=== PATIENT | male | born 1980 | race Caucasian/White ===

== ENCOUNTER 2018-04-02 21:27 | Emergency (ER) | payer SELFPAY ==
[~2018-04-02] VITALS: Ht 302.3 cm; Wt 72.3 kg
[2018-04-02 21:33] VITALS: Ht 302.3 cm; Wt 72.3 kg
[2018-04-03] MEDS ORDERED: KETOROLAC 30 MG INJ IM STA (00:03)
[2018-04-03] MEDS ORDERED: morphine 4 MG/ML VIAL IM STA (02:07)
[2018-04-03] MEDS ORDERED: IBUP-1542 PO (03:37)
[2018-04-03] MEDS ORDERED: HYDR-4011 PO (03:37)
[2018-04-03] MEDS ORDERED: METH750T93 PO (03:37)
[2018-04-03 03:48] VITALS: BP 153/78; PULSE 90; RESP 18
--- NOTE | 2018-04-03 07:07 | ERD ---
ER Documentation Chief Complaint Chief Complaint LEFT KNEE PAIN; [facility] [place] @ 1300 HPI 38-year-old male past medical history of right leg amputation presents for left knee pain status post fall today. Patient says he has chronic testicular swelling however he states that the swelling has increased since he had the f all. The states that he slipped on a wet floor and fell onto his knee, he was using a walker. Knee pain is noted to be 10 out of 10. He also complains of low back pain after the fall. No other complaints. ROS All systems reviewed and are negative except as per history of present illness. Medications Home Meds Active Scripts Hydrocodone/Acetaminophen ([place] 5-325 Tablet) 1 Each Tablet, 1 TAB PO Q6H PRN for PAIN, #10 TAB Prov:NATA WEBB 04/03/18 Methocarbamol* (Robaxin*) 750 Mg Tablet, 750 MG PO TID for back spasm, #30 TAB Prov:NATA WEBB DO 04/03/18 Ibuprofen* (Motrin*) 600 Mg Tab, 600 MG PO Q6H PRN for PAIN AND OR ELEVATED TEMP, #30 TAB Prov:WEBBNATA 04/03/18 Allergies Allergies: Coded Allergies: No Known Allergy (Unverified , 04/02/18) PMhx/Soc Hx Miscellaneous Medical Probl: Yes (DM2) Hx Alcohol Use: No Hx Substance Use: No Hx Tobacco Use: No Smoking Status: Never smoker Physical Exam Vitals Vital Signs Date Temp Pulse Resp B/P (MAP) Pulse Ox O2 O2 Flow FiO2 Time Delivery Rate 04/03/18 98.5 90 18 153/78 99 Room Air 03:48 (103) 04/02/18 98.9 98 19 167/80 96 21:33 (109) Physical Exam Const: No acute distress Resp: Clear to auscultation bilaterally Cardio: Regular rate and rhythm, no murmurs Abd: Soft, non tender, non distended. Normal bowel sounds Skin: No petechiae or rashes Back: Lumbar paraspinal muscle tenderness to palpation, no midline tenderness. Ext: There is no left knee tenderness to palpation. The left lower extremity has swelling diffusely. Neur: Awake and alert Psych: Normal Mood and Affect Genital exam: swelling of glans penis and scrotum Results 24 hrs Laboratory Tests Test 04/02/18 21:39 04/03/18 00:30 Bedside Glucose 270 mg/dL White Blood Count 9.2 10^3/ul Red Blood Count 2.79 10^6/ul Hemoglobin 8.2 g/dl Hematocrit 25.5 % Mean Corpuscular Volume 91.4 fl Mean Corpuscular Hemoglobin 29.4 pg Mean Corpuscular Hemoglobin Concent 32.2 g/dl Red Cell Distribution Width 14.1 % Platelet Count 432 10^3/UL Mean Platelet Volume 8.7 fl Immature Granulocytes % 0.200 % Neutrophils % 71.2 % Lymphocytes % 19.2 % Monocytes % 7.2 % Eosinophils % 1.8 % Basophils % 0.4 % Nucleated Red Blood Cells % 0.0 /100WBC Immature Granulocytes # 0.020 10^3/ul Neutrophils # 6.5 10^3/ul Lymphocytes # 1.8 10^3/ul Monocytes # 0.7 10^3/ul Eosinophils # 0.2 10^3/ul Basophils # 0.0 10^3/ul Nucleated Red Blood Cells # 0.0 10^3/ul Sodium Level 138 mmol/L Potassium Level 4.0 mmol/L Chloride Level 110 mmol/L Carbon Dioxide Level 18 mmol/L Anion Gap 10 Blood Urea Nitrogen 55 mg/dl Creatinine 1.90 mg/dl Est Glomerular Filtrat Rate mL/min 40 mL/min Glucose Level 266 mg/dl Calcium Level 8.2 mg/dl Total Bilirubin 0.0 mg/dl Direct Bilirubin 0.00 mg/dl Indirect Bilirubin 0.0 mg/dl Aspartate Amino Transf (AST/SGOT) 38 IU/L Alanine Aminotransferase (ALT/SGPT) 23 IU/L Alkaline Phosphatase 166 IU/L Total Protein 5.7 g/dl Albumin 2.4 g/dl Globulin 3.30 g/dl Albumin/Globulin Ratio 0.72 Current Medications Medications Dose Sig/Lanette Start Time Status Last (Trade) Ordered Route PRN Stop Time Admin Dose Reason Admin Ketorolac 30 mg ONCE STAT 04/03/18 DC 04/03/18 Tromethamine IM 00:03 00:25 (Toradol) 04/03/18 00:06 Morphine 4 mg ONCE STAT 04/03/18 DC 04/03/18 Sulfate IM 02:07 02:18 (morphine) 04/03/18 02:08 Procedures/MDM Medical Decision Making: Differential diagnosis includes but not limited to fracture, dislocation, muscle strain, ligamentous sprain. Patient appeared well on physical exam. There was left knee tenderness to palpation diffusely, also lumbar paravertebral muscle tenderness to palpation, no midline tenderness noted. Patient also had swelling of his glans penis and scrotum and left lower extremity. The swelling appears to be chronic in nature. CBC showed anemia with hemoglobin 8.2, no elevated WBC to suggest systemic infection CMP showed mildly bicarb, BUN 55 [address] showed No fracture or subluxation, 5 mm central disc protrusion at L5-S1, causing mild spinal canal stenosis. The disc protrusion contacts but does not appear to displace the bilateral traversing S1 nerve roots. Small bilateral pleural effusions, diffuse anasarca, and a small to moderate amount of ascites. Mild to moderate atherosclerotic arterial calcifications. The right femoral head is not located within the right acetabulum. Testicular ultrasound showed Normal appearance of the testicles and epididymides. Diffuse scrotal wall thickening, nonspecific. Lumbar spine CT findings appear to be chronic. ED course: Patient was given Toradol and morphine. Symptoms improved with treatment. Prescription(s): Patient given prescription for [place], Robaxin, Motrin. Patient advised to follow up with PCP in 1-2 days. Patient advised to return to ED for new or worsening symptoms. Patient stable on discharge from the ED. Disclaimer: Inadvertent spelling and grammatical errors are likely due to EHR /dictation software use and do not reflect on the overall quality of patient care. Also, please note that the electronic time recorded on this note does not necessarily reflect the actual time of the patient encounter. Departure Diagnosis: Primary Impression: Back injury Additional Impression: Testicular swelling Condition: Fair Patient Instructions: Back Sprain/Strain Referrals: [facility] YOU HAVE RECEIVED A MEDICAL SCREENING EXAM AND THE RESULTS INDICATE THAT YOU DO NOT HAVE A CONDITION THAT REQUIRES URGENT TREATMENT IN THE EMERGENCY DEPARTMENT. FURTHER EVALUATION AND TREATMENT OF YOUR CONDITION CAN WAIT UNTIL YOU ARE SEEN IN YOUR DOCTORS OFFICE WITHIN THE NEXT 1-2 DAYS. IT IS YOUR RESPONSIBILITY TO MAKE AN APPOINTMENT FOR FOLOW-UP CARE. IF YOU HAVE A PRIMARY DOCTOR --you should call your primary doctor and schedule an appointment IF YOU DO NOT HAVE A PRIMARY DOCTOR YOU CAN CALL OUR PHYSICIAN REFERRAL HOTLINE AT IF YOU CAN NOT AFFORD TO SEE A PHYSICIAN YOU CAN CHOSE FROM THE FOLLOWING [facility] [address] [facility] [address] [facility] [address] [facility] [address] [facility] [address] [facility]. [facility] [address] Additional Instructions: Call your primary care doctor TOMORROW for an appointment during the next 1-2 days.See the doctor sooner or return here if your condition worsens before your appointment time. NATA WEBB DO Apr 03, 2018 07:07
== END 2018-04-03 03:50 | disposition home or self-care (01) ==
LOC: FTE 21:27
DX: S39.92XA Unspecified injury of lower back, initial encounter (principal); E11.9 Type 2 diabetes mellitus without complications; N50.89 Other specified disorders of the male genital organs; W01.0XXA Fall on same level from slipping, tripping and stumbling without subsequent striking against object, initial encounter; Y92.9 Unspecified place or not applicable
CPT/HCPCS: 72131; 76870; 80053; 82962; 85025; J1885; J2270; 36415; 96372